=== PATIENT | male | born 1940 | race Caucasian/White ===

== ENCOUNTER 2019-03-09 13:48 | Observation (INO) | payer MEDICARE ==
[~2019-03-09] VITALS: Ht 182.9 cm; Wt 103.1 kg
[2019-03-09 14:19] LABS: BASOPHILS % (AUTO) 0.2 % (0.0-5.0); EOSINOPHILS % (AUTO) 0.8 % (0.0-8.0); HEMATOCRIT 42.6 % (42-54); LYMPHOCYTES % (AUTO) 9.4 % (21.0-51.0); MEAN CORPUSCULAR HEMOGLOBIN 29.8 pg (27.0-33.0); MEAN CORPUSCULAR HGB CONC 34.9 g/dL (32.0-36.0); MEAN CORPUSCULAR VOLUME 85.3 fL (79-99); NEUTROPHILS % (AUTO) 77.6 % (40.0-77.0); PLATELET COUNT (AUTO) 164 K/uL (130-400); RED CELL DISTRIBUTION WIDTH 14.2 % (11.0-15.5)
[2019-03-09 14:24] LABS: POTASSIUM 4.5 mmol/L (3.5-5.1)
[2019-03-09 15:24] LABS: ERYTHROCYTE SEDIMENTATION RATE 12 MM/HR (0-20)
[2019-03-09 16:06] LABS: APPEARANCE,URINE Clear (CLEAR); BILIRUBIN,URINE Negative (NEGATIVE); COLOR,URINE Yellow (YELLOW); GLUCOSE, URINE (UA) Negative (NEGATIVE); KETONES,URINE 15 mg/dL (NEGATIVE); LEUKOCYTE ESTERASE ,URINE Negative (NEGATIVE); NITRATE,URINE Negative (NEGATIVE); OCCULT BLOOD,URINE Small (NEGATIVE); PROTEIN,URINE Negative (NEGATIVE)
[2019-03-09 16:17] LABS: BACTERIA,URINE Few /HPF (None Seen); SQUAMOUS EPITHELIAL CELL,UR 0-2 /HPF (0-2)
[2019-03-09] MEDS ORDERED: ENOXAPARIN SODIUM 100 MG/1 ML SQ ONE (16:17)
[2019-03-09 22:00] VITALS: BP 143/84
[2019-03-09] MEDS ORDERED: METO-409 PO (22:04)
[2019-03-09] MEDS ORDERED: LISI40TA4 PO (22:04)
[2019-03-10] VITALS: BP 119/62
[2019-03-10 04:00] VITALS: BP 134/71
[2019-03-10] MEDS ORDERED: ENOXAPARIN SODIUM 100 MG/1 ML SQ SCH (05:00)
[2019-03-10 06:41] LABS: HEMATOCRIT 39.2 % (42-54); MEAN CORPUSCULAR HEMOGLOBIN 30.1 pg (27.0-33.0); MEAN CORPUSCULAR HGB CONC 34.7 g/dL (32.0-36.0); MEAN CORPUSCULAR VOLUME 86.6 fL (79-99); NUCLEATED RED BLOOD CELLS 0.1 % (0.0-0.19); PLATELET COUNT (AUTO) 150 K/uL (130-400); RED BLOOD CELL COUNT(AUTO) 4.53 MIL/uL (4.50-6.20); RED CELL DISTRIBUTION WIDTH 14.3 % (11.0-15.5); WHITE BLOOD COUNT (AUTO) 7.6 K/uL (4.8-10.8)
[2019-03-10 06:50] LABS: CREATININE 0.9 mg/dL (0.5-1.5); POTASSIUM 3.9 mmol/L (3.5-5.1)
[2019-03-10 07:00] VITALS: BP 145/83
--- NOTE | 2019-03-10 10:00 | NUR ---
DR. HOPE HERE ,AND DR CAPONE FOR A LEFT LEG ULTRASOUND. OF BACK LEFT LEG,
[2019-03-10 11:00] VITALS: BP 149/80
--- NOTE | 2019-03-10 15:30 | NUR ---
REPORT CALLED IN TO DR. HOPE OF HIS ULTRASOUND OF HIS LEFT LEG. THE INDICATION FINDING OF THE HYPOECHOIC AREAIS SEEN ATTHE REGIONS OF INTEREST OF THE POSTERIOR THIGH/ HAMSTRING AREA SUGGESTIVE OF SOFT TIESSUESWELLING AND SOFT TISSUE HEMATOMA COULD NOT BE EXCLUDED. NO FREE FLUID IS SEEN.. WITH ORDERS TO FOLLOW FOR DISCHARGE AND TREATMENT CARE .
--- NOTE | 2019-03-10 16:40 | NUR ---
DISCHARGE SUMMARY REVIEW WITH PT . AND [facility] .WITH DR. Christopher MORENO AND ORDERS FOR HEAT PAD TO HIS LEFT LEG, DUE TO A HEMATOMA . PT IS AWARE OF CARE AT HOME, AND OVER THE COUNTER MEDICATION TO USE BENGAY . PT STATED THAT HE WILL BE USING SOME ALOE TO SITE, SL TO HIS RFA WAS DC, WITH NO HEMATOMA NOTED AND A SM PRESSURE DRSG APPLY TO SITE. DENIES ANY PAIN . LEG WAS KEPT UP ELEVATED AND TO CONT AT HOME, LESS SWELLING NOTED AND REDNESS . CMS PRESENT . WITH STRONG TIBIALS, AND DORSALES PULSES NOTED. . NO NEW PRESCRIPTION
[2019-03-10 17:09] VITALS: BP 152/80
== END 2019-03-10 16:25 | disposition home or self-care (01) ==
LOC: EDH 13:48 → EDHIP 16:00 → 3CH 21:12
PROVIDERS: ADMIT Internal Medicine; ATTEND Internal Medicine
DX: R60.0 Localized edema (principal); M79.605 Pain in left leg; I10 Essential (primary) hypertension; M48.061 Spinal stenosis, lumbar region without neurogenic claudication; N42.89 Other specified disorders of prostate; Z87.891 Personal history of nicotine dependence; Z96.649 Presence of unspecified artificial hip joint; Z90.49 Acquired absence of other specified parts of digestive tract; Z90.89 Acquired absence of other organs; Z79.899 Other long term (current) drug therapy; Z88.2 Allergy status to sulfonamides
CPT/HCPCS: 36415 ×2; 76882; 80048 ×2; 81001; 85025; 85027; 85651; 86140; 93971; 96372; 99284; G0378 ×24; J1650 ×2

== ENCOUNTER 2021-06-07 10:19 | Day surgery (SDC) | payer MEDICARE ==
[2021-06-02 14:59] LABS: BASOPHILS % (AUTO) 0.5 % (0.0-5.0); EOSINOPHILS % (AUTO) 1.6 % (0.0-8.0); HEMATOCRIT 40.9 % (42-54); LYMPHOCYTES % (AUTO) 17.4 % (21.0-51.0); MEAN CORPUSCULAR HEMOGLOBIN 28.2 pg (27.0-33.0); MEAN CORPUSCULAR HGB CONC 33.5 g/dL (32.0-36.0); MEAN CORPUSCULAR VOLUME 84.2 fL (79-99); MONOCYTES % (AUTO) 10.5 % (3.0-13.0); NEUTROPHILS % (AUTO) 69.5 % (40.0-77.0); PLATELET COUNT (AUTO) 161 K/uL (130-400); RED BLOOD CELL COUNT(AUTO) 4.86 MIL/uL (4.50-6.20); RED CELL DISTRIBUTION WIDTH 13.9 % (11.0-15.5); WHITE BLOOD COUNT (AUTO) 8.1 K/uL (4.8-10.8)
[2021-06-02 15:09] LABS: POTASSIUM 4.2 mmol/L (3.5-5.1)
[2021-06-04 09:51] VITALS: BP 158/89
[~2021-06-07] VITALS: Ht 182.9 cm; Wt 104.4 kg
[2021-06-07] VITALS (12 sets, daily range): BP systolic 148–170; BP diastolic 83–97
[~2021-06-07 10:19] MED LIST: ACET-66 PO; KRIL500C PO; LUTE40CA PO; METO-391 PO; MULT-1296 PO; UBID100C10 PO; VALS320T16 PO; [UNRECOGNIZED DRUG - OTHER] PO
[2021-06-07] MEDS ORDERED: LACTATED RINGERS 1000ML 1,000 ML IV ONE ×2 (11:30→15:40)
[2021-06-07] MEDS: CEFTRIAXONE 1G VIAL IVP SCH ×2 (11:45→17:24)
[2021-06-07 12:01] LABS: CREATININE 0.9 mg/dL (0.5-1.5); POTASSIUM 4.2 mmol/L (3.5-5.1)
[2021-06-07] MEDS ORDERED: LIDOCAINE PF 100MG/5ML (2%) SYRINGE 5ML ONE (14:57)
[2021-06-07] MEDS ORDERED: PROPOFOL 10 MG/ML 20ML VIAL IV ONE (14:57)
[2021-06-07] MEDS ORDERED: FENTANYL CITRATE PF 50 MCG/1 ML 2ML VIAL ONE (14:58)
[2021-06-07] MEDS ORDERED: HYDRALAZINE 20MG/ML VIAL ONE (16:44)
== END 2021-06-07 18:45 | disposition home or self-care (01) ==
LOC: DAH 10:19
PROVIDERS: ATTEND Urology
DX: N32.0 Bladder-neck obstruction (principal); N35.919 Unspecified urethral stricture, male, unspecified site; I45.10 Unspecified right bundle-branch block; R32 Unspecified urinary incontinence; R35.1 Nocturia; J44.9 Chronic obstructive pulmonary disease, unspecified; I10 Essential (primary) hypertension; K58.9 Irritable bowel syndrome, unspecified; E11.9 Type 2 diabetes mellitus without complications; Z88.2 Allergy status to sulfonamides; Z79.899 Other long term (current) drug therapy; Z20.822 Contact with and (suspected) exposure to COVID-19
CPT/HCPCS: 36415 ×2; 52276; 80048 ×2; 85025; 87635; 93005; A4213; A4215; A4221; A4222; A4223; A4344 ×2; A4358; A4510; A4600; A4663; A6260; C1758; C1769 ×2; C9803; J0360; J0696; J2001; J2704; J3010; J7120 ×3

== ENCOUNTER → 2021-07-21 | Outpatient (CLI) | payer MEDICARE ==
[~2021-07-21] MED LIST changes: +IOHEXOL-350 75 ML VIAL IV ONE; -KRIL500C PO; -UBID100C10 PO
== END | disposition home or self-care (01) ==
LOC: RAH 13:56
PROVIDERS: ATTEND Orthopaedic Surgery
DX: T84.091A Other mechanical complication of internal left hip prosthesis, initial encounter (principal); M25.852 Other specified joint disorders, left hip; R22.42 Localized swelling, mass and lump, left lower limb; X58.XXXA Exposure to other specified factors, initial encounter
CPT/HCPCS: 73702; Q9967

== ENCOUNTER 2022-05-04 16:12 | Emergency (ER) | payer MEDICARE ==
[~2022-05-04] VITALS: Ht 177.8 cm; Wt 104.3 kg
[~2022-05-04 16:12] MED LIST changes: -IOHEXOL-350 75 ML VIAL IV ONE
[2022-05-04 17:02] LABS: APPEARANCE,URINE CLEAR (CLEAR); BILIRUBIN,URINE NEGATIVE (NEGATIVE); COLOR,URINE YELLOW (YELLOW); GLUCOSE, URINE (UA) NEGATIVE (NEGATIVE); KETONES,URINE 20 mg/dL (NEGATIVE); LEUKOCYTE ESTERASE ,URINE NEGATIVE Leu/uL (NEGATIVE); NITRATE,URINE NEGATIVE (NEGATIVE); OCCULT BLOOD,URINE MODERATE (NEGATIVE); PROTEIN,URINE 30 mg/dL (NEGATIVE); UROBILINOGEN,URINE 0.2 mg/dL (0.2-1.0)
[2022-05-04 17:20] LABS: BACTERIA,URINE RARE /HPF (None Seen); MUCUS,URINE FEW LPF (None Seen); SQUAMOUS EPITHELIAL CELL,UR RARE /HPF (0-2)
[2022-05-04 17:38] LABS: BASOPHILS % (AUTO) 0.1 % (0.0-5.0); EOSINOPHILS % (AUTO) 0.1 % (0.0-8.0); HEMATOCRIT 35.8 % (42-54); LYMPHOCYTES % (AUTO) 6.3 % (21.0-51.0); MEAN CORPUSCULAR HEMOGLOBIN 27.9 pg (27.0-33.0); MEAN CORPUSCULAR HGB CONC 34.4 g/dL (32.0-36.0); MEAN CORPUSCULAR VOLUME 81.2 fL (79-99); MONOCYTES % (AUTO) 12.2 % (3.0-13.0); PLATELET COUNT (AUTO) 162 K/uL (130-400); RED BLOOD CELL COUNT(AUTO) 4.41 MIL/uL (4.50-6.20); RED CELL DISTRIBUTION WIDTH 14.6 % (11.0-15.5); WHITE BLOOD COUNT (AUTO) 11.6 K/uL (4.8-10.8)
[2022-05-04 17:58] LABS: ALBUMIN 3.4 g/dL (3.5-5.0); POTASSIUM 3.7 mmol/L (3.5-5.1); TOTAL PROTEIN, SERUM 7.2 g/dL (6.0-8.3)
[2022-05-04] MEDS ORDERED: CEFTRIAXONE 1G VIAL IVP ONE (18:00)
[2022-05-04 18:15] LABS: CRP QUANTITATIVE 323.6 mg/L (0.00-9.0)
[2022-05-04] MEDS ORDERED: FENTANYL 50 MCG/HR PATCH TD ONE (19:27)
[2022-05-04 19:40] VITALS: BP 146/74
[2022-05-04] MEDS ORDERED: FENTANYL 50 MCG/HR PATCH TD SCH (20:00)
[2022-05-04] MEDS ORDERED: 0.9%NACL 1000ML 1,000 ML IV SCH (20:00)
== END 2022-05-04 20:03 | disposition home or self-care (01) ==
LOC: EDH 16:12
DX: M25.552 Pain in left hip (principal); L02.416 Cutaneous abscess of left lower limb; I10 Essential (primary) hypertension; Z20.822 Contact with and (suspected) exposure to COVID-19; Z88.2 Allergy status to sulfonamides; Z79.899 Other long term (current) drug therapy; Z98.890 Other specified postprocedural states
CPT/HCPCS: 99284; 96374; 71045; 87635; 84484; 80053; 85025; 87040 ×2; 87088; 83605; 86140; 81001; 36415; 73552; C9803; J0696

== ENCOUNTER 2022-11-01 09:04 | Day surgery (SDC) | payer MEDICARE ==
[2022-10-27 16:12] VITALS: BP 146/71
[2022-10-27 16:13] LABS: BASOPHILS % (AUTO) 0.2 % (0.0-5.0); EOSINOPHILS % (AUTO) 3.5 % (0.0-8.0); HEMATOCRIT 34.9 % (42-54); MEAN CORPUSCULAR HEMOGLOBIN 24.1 pg (27.0-33.0); MEAN CORPUSCULAR HGB CONC 31.2 g/dL (32.0-36.0); MONOCYTES % (AUTO) 10.9 % (3.0-13.0); NEUTROPHILS % (AUTO) 67.8 % (40.0-77.0); PLATELET COUNT (AUTO) 266 K/uL (130-400); RED BLOOD CELL COUNT(AUTO) 4.53 MIL/uL (4.50-6.20); RED CELL DISTRIBUTION WIDTH 15.9 % (11.0-15.5); WHITE BLOOD COUNT (AUTO) 10.6 K/uL (4.8-10.8)
[2022-10-27 16:20] LABS: CREATININE 0.8 mg/dL (0.5-1.5); POTASSIUM 4.8 mmol/L (3.5-5.1)
[2022-11-01] VITALS (10 sets, daily range): BP systolic 115–145; BP diastolic 70–84
[~2022-11-01] VITALS: Ht 177.8 cm; Wt 93.1 kg
[~2022-11-01 09:04] MED LIST changes: -ACET-66 PO; -LUTE40CA PO; -MULT-1296 PO; -VALS320T16 PO; +VALS320T2 PO; -[UNRECOGNIZED DRUG - OTHER] PO
[2022-11-01] MEDS ORDERED: LACTATED RINGERS 1000ML 1,000 ML IV ONE (09:59)
[2022-11-01] MEDS ORDERED: MIDAZOLAM HCL 1 MG/ML 2ML VIAL ONE (15:09)
[2022-11-01] MEDS ORDERED: PROPOFOL 10 MG/ML 20ML VIAL IV ONE (15:09)
[2022-11-01] MEDS ORDERED: MEPERIDINE-PF 25 MG/ML SYG ONE (15:10)
== END 2022-11-01 16:30 | disposition home or self-care (01) ==
LOC: DAH 09:04
PROVIDERS: ATTEND Orthopaedic Surgery
DX: T84.52XA Infection and inflammatory reaction due to internal left hip prosthesis, initial encounter (principal); Z20.822 Contact with and (suspected) exposure to COVID-19; I10 Essential (primary) hypertension; E66.9 Obesity, unspecified; I45.10 Unspecified right bundle-branch block; I25.2 Old myocardial infarction; Z79.899 Other long term (current) drug therapy; Z79.01 Long term (current) use of anticoagulants; Z68.28 Body mass index [BMI] 28.0-28.9, adult; Z88.1 Allergy status to other antibiotic agents; Y83.8 Other surgical procedures as the cause of abnormal reaction of the patient, or of later complication, without mention of misadventure at the time of the procedure; Y92.89 Other specified places as the place of occurrence of the external cause
CPT/HCPCS: 87426; 93005; 80048; 85025; 36415; 20610; 87070; 87076; 87205; 77002; A6260; A4663; A4606; J7120; J2250; J2704; J2175; A5120; A4215; A4223; A4222; A4221

== ENCOUNTER → 2024-02-29 | Outpatient (CLI) | payer MEDICARE ==
[~2024-02-29] MED LIST changes: +ACET-66 PO; +ALBUHFA IH; +AMOX-426 PO; +BENZ1LOZ81 MM; +CELE200 PO; +DIPH-1242 PO; +DOCU-116 PO; +FURO20TA4 PO; +GABA-529 PO; +MULT-248 PO; +PANT40TA55 PO; +PRED20TA3 PO; +TRAM50TA4 PO; +VALS320T16 PO; -VALS320T2 PO
== END | disposition home or self-care (01) ==
LOC: SHCH 14:23
PROVIDERS: ATTEND Internal Medicine Cardiovascular Disease
DX: I87.2 Venous insufficiency (chronic) (peripheral) (principal)
CPT/HCPCS: 93970